=== PATIENT | male | born 1960 | race Caucasian/White ===

== ENCOUNTER 2021-01-27 01:08 | Inpatient (IN) ==
[2021-01-27] MEDS ORDERED: NS 0.9% 1000 ml BAG 1,000 ML IV SCH (03:15)
[2021-01-27] MEDS: Enoxaparin 40 MG/0.4 ML SYR SUBCUT SCH (10:51)
[2021-01-27 12:39] LABS: Albumin 3.1 g/dL (3.2-5.2); Alkaline Phosphatase 94 U/L (35-149); Blood Urea Nitrogen 7 mg/dL (6-24); CO2 Carbon Dioxide 23 mmol/L (22-32); Calcium 7.7 mg/dL (8.6-10.3); Chloride 107 mmol/L (101-111); Cholesterol 95 mg/dL; EGFR African American 152.1 (>60); EGFR Non-African American 125.7 (>60); Globulin 3.2 g/dL (2-4); Glucose 84 mg/dL (70-100); Sodium 135 mmol/L (135-145); Total Protein 6.3 g/dL (6.4-8.9); Triglycerides 230 mg/dL
[2021-01-27 12:41] LABS: HDL Cholesterol < 2.5 mg/dL; LDL Cholesterol 47 mg/dL
[2021-01-27 13:00] LABS: ALT 856 U/L (7-52)
[2021-01-27 13:11] LABS: Anion Gap 5 mmol/L (2-11)
[2021-01-27 13:25] LABS: Urine Benzodiazepine Screen None Detected (None Detect); Urine Cannabinoids Screen None Detected (None Detect); Urine Opiates Screen None Detected (None Detect)
[2021-01-27 13:51] LABS: Hepatitis B Surface Antigen Nonreactive (Nonreactive)
[2021-01-27 13:56] LABS: Hepatitis A Ab IgM Reactive (Negative)
[2021-01-27 13:57] LABS: Hepatitis B Core IgM Nonreactive (Nonreactive)
[2021-01-27 14:26] LABS: INR 1.46 (0.82-1.09)
[2021-01-27 14:29] LABS: Hepatitis C Antibody Reactive (Negative)
[2021-01-27 14:37] LABS: Potassium Redraw 3.7 mmol/L (3.5-5.0)
[2021-01-27 15:42] LABS: HIV 4th Generation Nonreactive (Nonreactive)
[2021-01-28 06:50] LABS: Hematocrit 41 % (42-52); Hemoglobin 14.2 g/dL (14.0-18.0); Mean Corpuscular HGB Conc 34 g/dL (31-36); Mean Corpuscular Hemoglobin 31 pg (27-31); Mean Corpuscular Volume 91 fL (80-94); Mean Platelet Volume 7.5 fL (7.4-10.4); Platelet Count 153 10^3/uL (150-450); Red Blood Count 4.56 10^6 /uL (4.18-5.48); Red Cell Distribution Width 14 % (10-15); White Blood Count 2.4 10^3/uL (3.5-10.8)
[2021-01-28 06:55] LABS: INR 1.55 (0.82-1.09)
[2021-01-28 07:09] LABS: Albumin 3.1 g/dL (3.2-5.2); Calcium 7.8 mg/dL (8.6-10.3); EGFR African American 125.1 (>60); EGFR Non-African American 103.4 (>60); Globulin 3.2 g/dL (2-4); Indirect Bilirubin 1.6 mg/dL (0.3-1.0); Potassium 3.8 mmol/L (3.5-5.0); Total Protein 6.3 g/dL (6.4-8.9)
[2021-01-28 07:31] LABS: ABS Lymphocytes 0.5 10^3/ul (1.0-4.8); ABS Monocytes 0.2 10^3/ul (0-0.8); ABS Neutrophils 1.6 10^3/ul (1.5-7.7); Eosinophil % 0.9 %; Lymphocyte % 20.9 %; Nucleated Red Blood Cells % 0.1
[2021-01-28 07:34] LABS: TSH Ultra Thyroid Stim Horm 2.37 mcIU/mL (0.34-5.60)
[2021-01-28] MEDS: Enoxaparin 40 MG/0.4 ML SYR SUBCUT SCH (10:35)
[2021-01-28] MEDS ORDERED: Ondansetron 4 mg VIAL 2 MG/ML 2 ml VIAL IV PRN (20:58)
[2021-01-29 08:53] LABS: ABS Lymphocytes 0.4 10^3/ul (1.0-4.8); ABS Monocytes 0.3 10^3/ul (0-0.8); ABS Neutrophils 1.5 10^3/ul (1.5-7.7); Eosinophil % 0.4 %; Hematocrit 39 % (42-52); Hemoglobin 13.2 g/dL (14.0-18.0); Lymphocyte % 19.5 %; Mean Corpuscular HGB Conc 34 g/dL (31-36); Mean Corpuscular Hemoglobin 31 pg (27-31); Mean Corpuscular Volume 89 fL (80-94); Mean Platelet Volume 7.6 fL (7.4-10.4); Nucleated Red Blood Cells % 0.1; Platelet Count 140 10^3/uL (150-450); Red Blood Count 4.31 10^6 /uL (4.18-5.48); Red Cell Distribution Width 14 % (10-15); White Blood Count 2.2 10^3/uL (3.5-10.8)
[2021-01-29 09:11] LABS: Albumin 2.8 g/dL (3.2-5.2); Albumin/Globulin Ratio 0.9 (1-3); Calcium 7.6 mg/dL (8.6-10.3); EGFR African American 170.1 (>60); EGFR Non-African American 140.6 (>60); Potassium 3.6 mmol/L (3.5-5.0); Total Bilirubin 4.5 mg/dL (0.2-1.0); Total Protein 5.8 g/dL (6.4-8.9)
[2021-01-29] MEDS: Enoxaparin 40 MG/0.4 ML SYR SUBCUT SCH (10:12)
[2021-01-29 14:32] VITALS: BP 111/67
[2021-01-29 14:52] LABS: Complement C3 82 mg/dL (75 - 175)
== END 2021-01-29 15:50 | disposition home or self-care (01) ==
LOC: ED 01:08 → MED 02:27
PROVIDERS: ADMIT Internal Medicine; ATTEND Internal Medicine